=== PATIENT | female | born 1940 | race Caucasian/White ===

== ENCOUNTER 2018-01-08 11:23 | Observation (INO) | payer MEDICARE ==
[2018-01-08] MEDS ORDERED: NS 0.9% 1000 ML* 1,000 ML IV ONE (11:41)
[2018-01-08] MEDS ORDERED: Diltiazem IV* 5 MG/ML 5 ML VIAL (for loading dose/IV Push) (25 MG) IV SLOW PU ONE (11:42)
[2018-01-08 11:57] LABS: ABS Basophils 0 10^3/ul (0-0.2); ABS Eosinophils 0 10^3/ul (0-0.6); ABS Lymphocytes 1.4 10^3/ul (1.0-4.8); ABS Monocytes 0.9 10^3/ul (0-0.8); ABS Neutrophils 5.7 10^3/ul (1.5-7.7); ABS Nucleated RBC 0 10^3/ul; Eosinophil % 0.4 % (0-6); Hematocrit 51 % (35-47); Hemoglobin 17.2 g/dl (12.0-16.0); Lymphocyte % 17.7 % (25-47); Mean Corpuscular HGB Conc 34 g/dl (31-36); Mean Corpuscular Hemoglobin 32 pg (27-31); Mean Corpuscular Volume 94 fL (80-97); Mean Platelet Volume 8 um3 (7.4-10.4); Nucleated Red Blood Cells % 0.1; Platelet Count 250 10^3/ul (150-450); Red Blood Count 5.38 10^6/ul (4.0-5.4); Red Cell Distribution Width 15 % (10.5-15); White Blood Count 8.1 10^3/ul (3.5-10.8)
[2018-01-08 12:13] LABS: EGFR Non-African American 48.7 (>60)
[2018-01-08] MEDS ORDERED: Iodixanol* (CONTRAST) 320 MG/ML 100 ML SDV IV ONE (12:52)
--- NOTE | 2018-01-08 12:54 | RAD ---
INDICATION: Shortness of breath and chest pain COMPARISON: Chest x-ray October 01, 2007 TECHNIQUE: Single AP portable view of the chest was obtained. FINDINGS: Image quality is compromised due to the relative inferiority of a portable chest x-ray. There are surgical clips overlying the right axilla. The heart and mediastinum exhibit normal size and contour. There is mild coarse calcification overlying the arch of the aorta. Just above the right hilum there is a 1 cm density that appears to correspond to a confluence of vessels seen on the more detailed October 01, 2007 chest x-ray. There is slight elevation of the right hemidiaphragm. The lungs are otherwise clear. There is no evidence of a large pleural effusion. Visualized bones are normal for the patient's age. IMPRESSION: No radiographic evidence for acute cardiopulmonary abnormality on this portable chest x-ray.
--- NOTE | 2018-01-08 13:35 | RAD ---
HISTORY: Shortness of breath, new onset A. fib COMPARISONS: None TECHNIQUE: Multiple contiguous axial CT scans of the chest were obtained after the administration of nonionic intravenous contrast, timed to the pulmonary arterial phase of contrast enhancement.. Coronal and sagittal multiplanar reformations are also submitted for review. FINDINGS: NECK AND THYROID: The lower neck and thyroid are unremarkable. CHEST WALL: There is no lower cervical, axillary, or supraclavicular lymphadenopathy by size criteria. Surgical clips are noted in the right axilla. HEART AND PERICARDIUM: Coronary and valvular cardiac calcifications are noted. AORTA AND PULMONARY VASCULATURE: There is no pulmonary arterial filling defect to suggest pulmonary embolism. Evaluation of the aorta is limited secondary to technique. There is atherosclerosis of the thoracic aorta.. MEDIASTINUM: There is no mediastinal lymphadenopathy by size criteria. NABOR: There is no hilar lymphadenopathy by size criteria. AIRWAY AND ESOPHAGUS: The airway is unremarkable, without endobronchial filling defect. The esophagus is grossly normal. LUNG PARENCHYMA: There is minimal dependent atelectasis bilaterally. PLEURA: No pleural abnormalities are noted. UPPER ABDOMEN: The upper abdomen is unremarkable. BONES AND SOFT TISSUES: There are diffuse degenerative changes of the thoracic spine with sclerotic reactive endplate changes OTHER: None. IMPRESSION: 1. NO PULMONARY ARTERIAL FILLING DEFECT TO SUGGEST PULMONARY EMBOLISM. 2. ATHEROSCLEROSIS
[2018-01-08] MEDS ORDERED: Digoxin IV* 0.5 MG/2 ML AMP (0.25 MG/ML) IV SLOW PU ONE ×2 (14:39→16:42)
[2018-01-08] MEDS ORDERED: Ondansetron INJ* 2 MG/ML VIAL IV PRN (14:44)
[2018-01-08] MEDS ORDERED: Al Hydrox/Mg Hydrox/Simet LIQ* 30 ML UDC PO PRN (14:44)
[2018-01-08] MEDS ORDERED: Diltiazem IV VIAL* 125 MG in NS 0.9% 100 ML* 100 ML IV SCH ×2 (15:00→16:43)
[2018-01-08] MEDS ORDERED: Diltiazem DRIP* 100 MG/100 ML ADDV.BAG IVPB SCH (15:00)
[2018-01-08] MEDS ORDERED: Enoxaparin(*) 60 MG/0.6 ML SYR SUBCUT SCH (15:00)
--- NOTE | 2018-01-08 17:31 | ECHO ---
Patient: CIERA LLANOS [facility] Rec#: [id number] : 1940 Date: 01/08/2018 Age: 77y Height: 162.56 cm / 64.0 in Weight: 66.22 kg / 145.9 lbs Sex: F BSA: 1.71 Room#: [facility] Admit Date#: 01/08/2018 Type: Inpatient Referring: Marti Jimenez Reading: Zechariah Polk MD Loom Stop Checker: Carrie López RDCS CC: Brock Blackman MD Transthoracic Echocardiogram Indication: New atrial fibrillation BP: 164/114 HR: 115 Rhythm: A-Fib Findings Technical Comments: The study quality is good. Completed at 1720. Left Ventricle: The left ventricular chamber size is normal. Mild concentric left ventricular hypertrophy is observed. There is increased basal septal hypertrophy noted without evidence of an increased gradient across the left ventricular outflow tract. Global left ventricular wall motion and contractility are within normal limits. The left ventricle appears hyperdynamic. The estimated ejection fraction is 60-65%. The assessment of diastolic function is non-diagnostic. Left Atrium: The left atrium is severely dilated. Right Ventricle: The right ventricle wall thickness is mildly increased.7 mm. The right ventricular cavity size is normal. The right ventricular global systolic function is low normal. Right Atrium: The right atrial cavity size is severely dilated. Interatrial septum appears intact without evidence of shunting. The bubble study is negative. A patent foramen ovale is not demonstrated with color Doppler and agitated contrast. Aortic Valve: The aortic valve is trileaflet. The aortic valve leaflets are mildly thickened. Systolic excursion of the aortic valve cusps is reduced. There is no evidence of aortic regurgitation. There is no evidence of aortic stenosis. Mitral Valve: The mitral valve leaflets are mildly thickened. There is moderate mitral regurgitation. There is no evidence of mitral stenosis. Tricuspid Valve: The tricuspid valve leaflets are normal. There is mild to moderate tricuspid regurgitation. There is evidence of mild pulmonary hypertension. There is no tricuspid stenosis. Pulmonic Valve: The pulmonic valve appears normal. There is a trace pulmonic regurgitation. There is no pulmonic stenosis. Pericardium: There is no significant pericardial effusion. Aorta: There is no dilatation of the ascending aorta. There is no dilatation of the aortic arch. The aortic root is normal in size. Pulmonary Artery: The main pulmonary artery is not well visualized. Venous: The inferior vena cava appears normal in size. There is a greater than 50% respiratory change in the inferior vena cava dimension. Contrast: Normal saline was used as contrast for the bubble study. Images 82 and 83. Intravenous contrast was used to help determine presence of intracardiac shunting. Summary: There was not any prior study for comparison. Conclusions Mild concentric left ventricular hypertrophy is observed. There is increased basal septal hypertrophy noted without evidence of an increased gradient across the left ventricular outflow tract. The left ventricle appears hyperdynamic. The estimated ejection fraction is 60-65%. The left atrium is severely dilated. The right ventricle wall thickness is mildly increased. The right ventricular global systolic function is low normal. The right atrial cavity size is severely dilated. A patent foramen ovale is not demonstrated with color Doppler and agitated contrast. The aortic valve leaflets are mildly thickened. Systolic excursion of the aortic valve cusps is reduced. There is moderate mitral regurgitation. There is mild to moderate tricuspid regurgitation. There is evidence of mild pulmonary hypertension. Measurements Name Value Normal Range RVIDd (AP) 2D 3 cm (0.9 - 2.6) RVDdMajor (2D) 4.1 cm (2.2 - 4.4) RAd ISD 4CH 5.8 cm (3.4 - 4.9) RA (A4C)W 4.2 cm (2.9 - 4.6) IVSd (2D) 1.1 cm (0.6 - 1) LVPWd (2D) 1.1 cm (0.6 - 1) LVIDd (2D) 3.6 cm (3.6 - 5.4) LVIDs (2D) 3.1 cm - LV FS (2D) 15 % (25 - 45) EF Teichholz (2D) 33 % - Aortic Annulus 1.5 cm (1.4 - 2.6) Ao root diameter (2D) 3 cm (2.1 - 3.5) Ascending Ao 3 cm (2.1 - 3.4) Aortic arch 2.1 cm (1.8 - 3.4) LA dimension (AP) 2D 3.9 cm (2.3 - 3.8) LAd ISD 4CH 6.3 cm (2.9 - 5.3) LA ISD 4CH W 5.2 cm (2.5 - 4.5) Name Value Normal Range LA ESV SP 4CH (A/L) 72 ml - LA ESV SP 2CH (A/L) 94 ml - LA ESV BP (A/L) 86 ml - LA ESV BP (A/L) index 50 ml/m2 - LA ESV SP 4CH (MOD) 66 ml - LA ESV SP 2CH (MOD) 87 ml - Name Value Normal Range MV E-wave Vmax 1.05 m/sec - MV deceleration time 126.3 msec - MV E:A ratio 134.8 ratio - LV septal e' Vmax 0.1 m/sec - LV lateral e' Vmax 0.13 m/sec - LV E:e' septal ratio 8.08 ratio - LV E:e' lateral ratio 10.5 ratio - Name Value Normal Range AV Vmax 1.2 m/sec - AV VTI 19.2 cm - AV peak gradient 5.37 mmHg - AV mean gradient 3.28 mmHg - LVOT Vmax 0.85 m/sec - LVOT VTI 12.66 cm - LVOT peak gradient 2.9 mmHg - LVOT mean gradient 1.64 mmHg - DESMOND Vmax 0.45 m/sec - Name Value Normal Range MR Vmax 6.05 m/sec - MR VTI 135.3 cm - MR flow (PISA) 20.8 ml/sec - MR ERO 0.03 cm2 - MR PISA radius 0.5 cm - MR alias Vmax 29.6 cm/sec - Name Value Normal Range TR Vmax 3 m/sec - TR peak gradient 36 mmHg - RAP 3 mmHg - RVSP 39 mmHg - IVC diameter 2 cm - Name Value Normal Range PV Vmax 0.68 m/sec - PV peak gradient 1.9 mmHg -
[2018-01-08] MEDS: Atorvastatin* 40 MG TAB PO SCH (17:46)
--- NOTE | 2018-01-08 18:12 | RAD ---
HISTORY: bruit COMPARISONS: January 15, 2016 TECHNIQUE: Multiple transverse and longitudinal ultrasound images were obtained of the carotid and vertebral arteries bilaterally, using grayscale, color Doppler, and spectral Doppler imaging. FINDINGS: Measurement of carotid stenosis is based on flow velocity parameters that correlate the residual internal carotid artery diameter with [place] Symptomatic Carotid Endarterectomy Trial (NASCET)-based stenosis levels. RIGHT: Intima: There is diffuse intimal thickening with more focal atheroma formation at the bifurcation. Velocities: Right internal carotid artery maximum peak systolic velocity: 74 cm/s Right common carotid artery maximum peak systolic velocity: 133 cm/s Right internal carotid artery/common carotid artery ratio: 0.5 Waveforms: There is no spectral broadening. Right Vertebral: The right vertebral artery flow is antegrade. LEFT: Intima: There is diffuse intimal thickening with more focal atheroma formation at the bifurcation. Velocities: Left internal carotid artery maximum peak systolic velocity: 78 cm/s Left common carotid artery maximum peak systolic velocity: 120 cm/s Left internal carotid artery/common carotid artery ratio: 0.7 Waveforms: There is no spectral broadening. Left Vertebral: The left vertebral artery flow is antegrade. OTHER FINDINGS: None. IMPRESSION: NO HEMODYNAMICALLY SIGNIFICANT STENOSIS OF THE RIGHT INTERNAL CAROTID ARTERY BY FLOW VELOCITY MEASUREMENTS. THIS CORRESPONDS TO A LUMINAL DIAMETER OF LESS THAN 50% STENOSIS BY NASCET CRITERIA. NO HEMODYNAMICALLY SIGNIFICANT STENOSIS OF THE LEFT INTERNAL CAROTID ARTERY BY FLOW VELOCITY MEASUREMENTS. THIS CORRESPONDS TO A LUMINAL DIAMETER OF LESS THAN 50% STENOSIS BY NASCET CRITERIA. CPT II Codes: 3100F
--- NOTE | 2018-01-08 20:27 | HP ---
AMENDED REPORT NOW INCLUDES COSIGNER DESIGNATION - ESIGNED BEFORE ADJUSTMENT CC: Dr. Brock Blackman * HISTORY AND PHYSICAL: DATE OF ADMISSION: 01/08/18 PROVIDER: Marti Jimenez NP ATTENDING PHYSICIAN WHILE IN THE HOSPITAL: Dr. Rafaela Carrizales * (dictated by Marti Jimenez NP) CHIEF COMPLAINT: 1. Shortness of breath. 2. Chest pain. HISTORY OF PRESENT ILLNESS: Ms. Cleaning is a 77-year-old female that was seen at her primary care office today and was found to be in atrial fibrillation. So, she was sent to the emergency room for further workup. Ms. Cleaning carries a history of hypertension, high cholesterol, right-sided breast cancer in 1996, and right subclavian stenosis. Ms. Cleaning states that up until yesterday, she was in her normal state of health. She denied any recent exposure to sick contacts. She states that yesterday, she woke in the morning and she had an ache in her chest. She states that the ache was in the sternal area. She states that the ache radiated up to her shoulders and in to her mouth. She says that during the day yesterday, she did lie back down for a while, but the ache did not subside. So, she thought that maybe she was having a heart attack. So, she took an aspirin 325 mg with no relief of the symptoms and approximately 4 hours later, she took another aspirin 325 mg, again with no relief. Later that day, she took Tylenol 650 mg and states that later that evening, the chest ache had subsided. Ms. Cleaning reports that over the past month , she has had a cough and some shortness of breath when climbing stairs. She reports that she is able to do all other activities such as vacuuming and grocery shopping without any shortness of breath. She reports it is only with climbing stairs. She denies any fatigue or dizziness. She denies any palpitations. She denies back pain. She denies any increased shortness of breath. PAST MEDICAL HISTORY: 1. Hypertension. 2. High cholesterol. 3. Right breast cancer in 1996, which she completed treatment. 4. Right subclavian stenosis. PAST SURGICAL HISTORY: 1. Bilateral hip replacements. 2. precancerous cells removed from her cervix. 3. Tonsillectomy. MEDICATIONS: Home medications: 1. Multivitamin. 2. Aspirin 81 mg p.o. daily. 3. Lisinopril 10 mg p.o. daily. 4. Calcium with vitamin D3 1 tab p.o. daily. 5. Simvastatin 40 mg p.o. daily. 6. Stewart-3 one cap p.o. daily. ALLERGIES TO MEDICATIONS: No known allergies. FAMILY HISTORY: Father is still living at the age of 102. She reports paternal grandmother with a history of CHF and maternal grandmother with a history of an SC after surgery, paternal grandmother with diabetes, Aunt with cancer. SOCIAL HISTORY: The patient is a previous smoker. She quit 17 years ago. States that she smoked between 3 quarters and a pack a day. She does report daily alcohol use, which she has 1 cocktail at night. Drug use, no drug use. She is retired. She lives with her . Her surrogate decision maker is her , Alberto Cleaning. His phone number is [phone]. REVIEW OF SYSTEMS: There was no documented fever. There has been no significant weight change. There was no double vision. She denies any ear discharge. Denies any rhinorrhea. She denies sore throat. She does report that she had a chest ache yesterday, but denies any chest pain today. She denies any shortness of breath or nocturnal dyspnea. She does report shortness of breath only with climbing stairs. She denies any abdominal pain. Denies nausea or vomiting. Denies diarrhea. Denies any dysuria or urinary frequency. Denies any hematuria. Denies palpitations. No pruritus or skin ulcerations. A review of 14 systems was completed and all others are negative. PHYSICAL EXAMINATION GENERAL: At this time, Ms. Cleaning is a 77-year-old female. She appears well and healthy, lying on the stretcher. She does not appear to be in any acute distress. VITAL SIGNS: Blood pressure 150/96, heart rate is 133 and irregular, respirations are 16, O2 saturation was 93% on room air, temp was 96.8. HEENT: Head is atraumatic, normocephalic. Eyes: EOMs are intact. Sclerae anicteric, not pale. Oral mucosa appears to be moist. No oropharyngeal erythema. NECK: Supple. LUNGS: Clear to auscultation. No wheezes, rales, or rhonchi. CARDIAC: S1, S2. Irregular rate and rhythm. There are no murmurs, rubs, or gallops. She is tachycardic. ABDOMEN: Soft, flat, and nontender. Bowel sounds are positive x4. EXTREMITIES: Pulses are +2 throughout. She is moving all extremities with 5/5 strength. Pedal pulses are +2 bilaterally. NEUROLOGIC: She is awake, she is alert, and oriented x3. Speech is clear. There are no focal deficits noted. SKIN: Intact. DIAGNOSTIC STUDIES/LAB DATA: WBCs are 8.1, hemoglobin was 17.2, hematocrit was 51, platelet count was 250. Sodium was 136, potassium 4.3, chloride 101, carbon dioxide was 27, anion gap is 8, BUN was 17, creatinine 1.09, glucose was 101, calcium was 10.0, magnesium 2.3. ASTs were 30, ALTs were 39. TSH was 1.72 , T4 was 5.13, free T4 is pending at this time. BNP was 321. Troponin was 0.01. EKG: EKG shows AFib at a rate of 120. Her previous EKG from her doctor's office from today showed AFib. Prior to that, she was in sinus rhythm from an old EKG at her physician's office. Chest x-ray showed no acute disease. She had a CTA of the chest: 1. No pulmonary atrial filling defect, no pulmonary embolism is seen. 2. Atherosclerosis. ASSESSMENT AND PLAN: Ms. Cleaning is a 77-year-old female that presented to the emergency room today after being seen in her primary care office and found to be in atrial fibrillation. We were asked to evaluate her because of the new- onset atrial fibrillation. She will be admitted under observation status to the telemetry unit for: 1. New-onset atrial fibrillation. She will be placed on a Cardizem drip at 5 mg per hour. She will receive a dose of IV digoxin 0.5 mg IV. I have consulted Cardiology and Dr. Polk will see her. I also ordered a transthoracic echocardiogram to be completed. I will place her on Lovenox 60 mg q.12 hours. Her CHADS2 score is a 2, which puts her at an intermediate risk of thromboembolic event at 4%. Her [id number] score is 5 for atrial fibrillation, stroke risk is 7.2%, and 10% risk of stroke/transient ischemic attack or systemic embolism, she scores a [id number] risk and anticoagulation consideration should be evaluated. Her ATRIA Bleeding Risk Score is 3, which puts her at a low risk, 0.76 annually of having a hemorrhage if placed on anticoagulation. We will continue serial troponins on her x2. Cardiology consult will be appreciated. 2. Abnormal T4. T4 level was 5.3. A free T4 level is pending. 3. Hypertension. At this time, we will hold her lisinopril as she is on Cardizem at this time. 4. High cholesterol. The patient is on simvastatin 40 mg p.o. daily at home. 5. FEN. We will place her on a heart-healthy diet, decaf okay. 6. Code status. She is a full code. 7. DVT prophylaxis. She is on Lovenox 60 mg b[address]i.d. I will also place SCDs on her. 8. Disposition. She will be admitted to medical telemetry floor. TIME SPENT: Time spent on this admission was approximately 60 minutes, greater than half the time was spent [id number] with the patient obtaining the history and physical, the other half of the time was spent going over the plan of care with the patient and implementing the plan of care. I have discussed this plan with my attending physician, Dr. Rafaela Carrizales, and she is in agreement. MARTI JIMENEZ, [place] [id number]/[facility] #: [id number] RENÉE
[2018-01-08 22:33] LABS: Urine Appearance Clear; Urine Blood Negative (Negative); Urine Color Yellow; Urine Ketones Trace (Negative); Urine Protein Negative (Negative); Urine Specific Gravity 1.019 (1.010-1.030); Urine Urobilinogen Negative (Negative)
--- NOTE | 2018-01-09 01:09 | CONS ---
CC: Dr. Blackman * CARDIOLOGY CONSULTATION: DATE OF CONSULT: 01/08/18 CONSULTING PROVIDER: Marti Jimenez NP REASON FOR CONSULT: AFib. HISTORY OF PRESENT ILLNESS: This is a very pleasant 77-year-old woman who said that she was in her usual sate of health until about 2 months ago when she noted nonproductive cough and some shortness of breath going up and down the flight of stairs. She said she is not normally very active, but was able to do her shopping and walk short distances. She also goes once a week to the pool and does some stretching, but not swimming. She said that yesterday morning she awoke feeling achiness in her left chest, she thought in her sternum, she thought it was in her breast bone, was not tender. She said it was worse with deep inspiration. Because of those, she did not have any associated nausea, vomiting, gas or diaphoresis. She did not change her position, just rested all day. She said she took 2 aspirin over the course of the day and by the end of the day improved and she was able to go to sleep. This morning she felt well, but because of the episode yesterday she decided to go to see her primary care doctor, Dr. Blackman. Dr. Blackman did an EKG and diagnosed with AFib and sent her to the emergency room. Her initial EKG showed what looked like AFib and possibly A -flutter with a rapid ventricular response in the 120s. She also had an elevated D-dimer at 382 and she had a negative CT angio for pulmonary embolism; however, was positive for coronary calcifications. She denies bleeding problems , strokes or mini strokes. No rheumatic fever, murmurs. No coronary disease. She does state she has a chronically occluded right subclavian artery with differential blood pressure in the upper extremities. PAST MEDICAL HISTORY: Includes; 1. Hypertension. 2. Hyperlipidemia. 3. Right subclavian artery stenosis. 4. Tobacco use of about 1 or less packs per day for 40 years, discontinued 17 years ago. 5. She had a longstanding exposure of secondhand smoke from her . 6. She has a history of breast cancer. PAST SURGICAL HISTORY: Includes; 1. Lumpectomy on the right breast and RT. 2. She had bilateral hip replacements. 3. She had some cervical precancerous lesions removed. MEDICATIONS: Home medications include; 1. Multivitamins. 2. 81 mg of aspirin. 3. Lisinopril 10 mg a day. 4. Calcium carbonate. 5. Vitamin D3. 6. Simvastatin 40 mg a day. 7. [place]-3, 1 cap a day. As an inpatient, she is on 1. Acetaminophen. 2. Maalox. 3. Atorvastatin 40 mg a day. 4. Diltiazem IV 5 mg an hour, increasing to 10 mg an hour currently. 5. Enoxaparin 60 mg subcu q.12. 6. Multivitamin 1 tablet a day. 7. Ondansetron 4 mg IV p.r.n. SOCIAL HISTORY: She is and has 4 step children. She is a retired psychiatric nursing assistant. She drinks 2 to 3 cups of caffeine a day and she drinks 1 to 2 drinks of alcohol a day. She denies any recent over indulgence, but occasionally drinks more when she is with friends. She goes up and down 1 flight of stairs without stopping, but is more short of breath over the last 2 months. REVIEW OF SYSTEMS: Times 10 was negative except as above. PHYSICAL EXAM: She is a well-developed, well-nourished female, in no apparent distress. Blood pressure 150/95 with a heart rate of 130, O2 saturation is 98% . No significant JVD. Carotids are 2+ with bruits bilaterally or transmitted murmurs. Extraocular muscles intact. Sclerae anicteric. Cardiac: S1, S2 with a 2/6 holosystolic murmur at the apex. Chest was clear with decreased breath sounds, prolonged expiratory phase. No CVAT. Abdomen: Bowel sounds present. No hepatosplenomegaly. Femoral pulses intact. Distal pulses intact. No edema. Motor strength 5/5 bilaterally. Deep tendon reflexes 2/4. Alert and oriented x3. DIAGNOSTIC STUDIES/LAB DATA: An EKG revealed atrial fibrillation with a rapid ventricular response and nonspecific diffuse ST depressions. Electrolytes revealed potassium 4.3, BUN 17, creatinine 1.09, mag of 2.3. BNP elevated at 321. TSH normal. Thyroxine mildly decreased at 5.13. CBC with an elevated hemoglobin 7.2, hematocrit of 51 and platelet count of 250,000. Chest x-ray: Mild coarse calcifications overlying the arch of the aorta. CT angio from today revealed no PE, but there was atherosclerosis with calcifications of the valves and the coronary arteries and there was atherosclerosis of the thoracic aorta. IMPRESSION: Mrs. Cleaning has a new presentation of atrial fibrillation of unknown duration. She is not aware of her symptoms, but she does suggest in this case she had a nonproductive cough and dyspnea on exertion for 2 months. This may be related to atrial fibrillation or to coronary artery disease given her history of vascular disease and coronary calcifications. For the time being, I have recommended the following: I recommended anticoagulation as you are doing. I suggested rate control with IV diltiazem, IV beta blockers and digoxin as tolerated. I have recommended continued lipid lowering, switching her from simvastatin to Lipitor given the potential need for diltiazem and its interactions. I would suggest carotid Dopplers. If she fails to convert overnight, would consider a BERNIE-guided cardioversion. Would consider an evaluation for pulmonary disease given her history of tobacco use and polycythemia with continuous blood pressure control. I asked her to reduce her caffeine and alcohol. I did explain potential for coronary artery disease given her vascular disease and coronary calcifications. At some point, I would recommend a stress test. Further recommendation will depend on her clinical course. I did recommend long-term anticoagulation given her CHADS-VASC2 score of 4 and her lack of ability to appreciate her atrial fibrillation. [id number]/[facility] #: [id number] RENÉE
[2018-01-09] MEDS: Acetaminophen TAB* 325 MG PO PRN ×2 (01:28→22:14)
[2018-01-09] MEDS ORDERED: Diltiazem IV VIAL* 125 MG in NS 0.9% 100 ML* 100 ML IV SCH (04:30)
[2018-01-09] MEDS ORDERED: Enoxaparin(*) 60 MG/0.6 ML SYR SUBCUT SCH (06:00)
[2018-01-09 06:55] LABS: ABS Basophils 0 10^3/ul (0-0.2); ABS Eosinophils 0.1 10^3/ul (0-0.6); ABS Lymphocytes 1.4 10^3/ul (1.0-4.8); ABS Monocytes 0.6 10^3/ul (0-0.8); ABS Neutrophils 3.2 10^3/ul (1.5-7.7); ABS Nucleated RBC 0 10^3/ul; Eosinophil % 1.3 % (0-6); Hematocrit 44 % (35-47); Hemoglobin 14.8 g/dl (12.0-16.0); Lymphocyte % 26.3 % (25-47); Mean Corpuscular HGB Conc 34 g/dl (31-36); Mean Corpuscular Hemoglobin 32 pg (27-31); Mean Corpuscular Volume 94 fL (80-97); Mean Platelet Volume 8 um3 (7.4-10.4); Nucleated Red Blood Cells % 0.1; Platelet Count 223 10^3/ul (150-450); Red Blood Count 4.66 10^6/ul (4.0-5.4); Red Cell Distribution Width 15 % (10.5-15); White Blood Count 5.3 10^3/ul (3.5-10.8)
[2018-01-09] MEDS: Multivitamins/Minerals TAB PO SCH (07:50)
[2018-01-09] MEDS ORDERED: fentaNYL* 50 MCG/ML 2 ML VIAL (100 MCG VIAL) ONE (10:09)
[2018-01-09] MEDS ORDERED: Flumazenil* 0.1 MG/ML 5 ML MDV ONE (10:09)
[2018-01-09] MEDS ORDERED: Midazolam* 1 MG/ML 10 ML VIAL (10 MG) ONE (10:09)
[2018-01-09] MEDS ORDERED: Lidocaine 2% VISCOUS* 15 ML UDC ONE (10:09)
[2018-01-09] MEDS ORDERED: Naloxone* 0.4 MG/ML 1 ML VIAL ONE (10:09)
[2018-01-09] MEDS: Diltiazem CD CAP* 120 MG PO SCH (14:14)
[2018-01-09] MEDS: Atorvastatin* 40 MG TAB PO SCH (16:06)
[2018-01-09] MEDS ORDERED: Digoxin TAB* 0.125 MG PO SCH (17:00)
[2018-01-09] MEDS: Rivaroxaban TAB(*) 15 MG PO SCH (21:19)
--- NOTE | 2018-01-09 21:28 | PN ---
Subjective Date of Service: 01/09/18 Interval History: Patient down for attempted cardioversion and PACU for most of day. Drowsy when examined after return to floor. Denies palpitations, SOB, CP, N/V, Diarrhea, abdominal pain, F/C. Discussed the decision to proceed with rate control at this time and to anticoagulate with DOAC to which patient agreed. Family History: Unchanged from Admission Social History: Unchanged from Admission Past Medical History: Unchanged from Admission Objective Active Medications: Acetaminophen (Tylenol Tab*) 650 mg PO Q4H PRN PRN Reason: FEVER/PAIN Last Admin: 01/09/18 01:28 Dose: 650 mg Al Hydrox/Mg Hydrox/Simethicone (Maalox Plus*) 30 ml PO Q6H PRN PRN Reason: INDIGESTION Atorvastatin Calcium (Lipitor*) 40 mg PO 1700 [facility] Last Admin: 01/09/18 16:06 Dose: 40 mg Digoxin (Lanoxin Tab*) 0.125 mg PO 1700 [facility] Last Admin: 01/09/18 16:06 Dose: 0.125 mg Diltiazem HCl (Cardizem Cd Cap*) 120 mg PO DAILY [facility] Last Admin: 01/09/18 14:14 Dose: 120 mg Multivitamins/Minerals (Theragran/Minerals Tab*) 1 tab PO DAILY [facility] Last Admin: 01/09/18 07:50 Dose: Not Given Ondansetron HCl (Zofran Inj*) 4 mg IV Q4H PRN PRN Reason: NAUSEA/VOMITING Rivaroxaban (Xarelto(*)) 15 mg PO BID [facility] Last Admin: 01/09/18 21:19 Dose: 15 mg Vital Signs - 8 hr 01/09/18 01/09/18 01/09/18 13:51 14:48 15:50 Temperature 98.0 F 97.6 F Pulse Rate 70 107 Respiratory 16 16 Rate Blood Pressure 106/68 118/70 119/59 (mmHg) O2 Sat by Pulse 92 97 Oximetry 01/09/18 16:06 Temperature Pulse Rate 105 Respiratory Rate Blood Pressure (mmHg) O2 Sat by Pulse Oximetry Oxygen Devices in Use Now: Nasal Cannula - 2L Appearance: Patient is a 77yo female who appears stated age and is sitting in the bed in [facility]. Eyes: No Scleral Icterus, PERRLA Ears/Nose/Mouth/Throat: NL Teeth, Lips, Gums, Clear Oropharnyx, Mucous Membranes Moist Neck: NL Appearance and Movements; NL JVP, Trachea Midline, No Thyroid Enlargement, Masses Respiratory: Symmetrical Chest Expansion and Respiratory Effort, Clear to Auscultation Cardiovascular: NL Sounds; No Murmurs; No JVD, No Edema, - - Irregularly irregular rhythm, Rate 60-80. Abdominal: NL Sounds; No Tenderness; No Distention, No Hepatosplenomegaly Lymphatic: No Cervical Adenopathy Extremities: No Edema, No Clubbing, Cyanosis Skin: No Rash or Ulcers, No Nodules or Sclerosis Neurological: Alert and Oriented x 3, NL Sensation, NL Muscle Strength and Tone , - - Slight persistent lateral nystagmus with lateral gaze. Result Diagrams: 01/09/18 05:52 01/09/18 05:52 Assess/Plan/Problems-Billing Assessment: Patient is a 77yo female with a PMH significant for HTN, HLD, Subclavian stenosis and history of tobacco abuse who presents in atrial fibrillation with RVR who was unable to be cardioverted and is not rate controlled and anticoagulated. - Patient Problems (1) Atrial fibrillation Current Visit: Yes Status: Acute Code(s): I48.91 - UNSPECIFIED ATRIAL FIBRILLATION SNOMED Code(s): 08494339 Comment: Appreciate Cardiology input. Afib with RVR. Rate controlled with cardizem drip and IV digoxin. Changed to PO cardizem and digoxin after unsucessful cardioversion. Anticoagulated with xarelto on starting dose of 15mg BID for 21 days. Pulmonary disease likely contributing. (2) Coronary artery disease Current Visit: Yes Status: Acute Code(s): I25.10 - ATHSCL HEART DISEASE OF [facility] CORONARY ARTERY W/O ANG PCTRS SNOMED Code(s): 55252877 Comment: Coronary calcifications noted on CTA. Recommend outpatient stress test. Echo shows preserved ejection fraction. (3) COPD (chronic obstructive pulmonary disease) Current Visit: Yes Status: Acute Code(s): J44.9 - CHRONIC OBSTRUCTIVE PULMONARY DISEASE, UNSPECIFIED SNOMED Code(s): 00104667 Comment: Likely COPD due to smoke exposure, Mild pulmonary hypertension on echo, polycythemia. Recommend pulmonary referral outpatient for PFTs. (4) CONCEPCION (obstructive sleep apnea) Current Visit: Yes Status: Acute Code(s): G47.33 - OBSTRUCTIVE SLEEP APNEA ( ADULT) (PEDIATRIC) SNOMED Code(s): 87190556 Comment: Reports snoring. Denies daytime sleepiness. Wide neck. Significant hypoxia on overnight pulse oximetry. Would recommend overnight oxygen and pulmonology evauation for formal sleep study. (5) HTN (hypertension) Current Visit: Yes Status: Acute Code(s): I10 - ESSENTIAL (PRIMARY) HYPERTENSION SNOMED Code(s): 21930005 Comment: Normotensive. Hold lisinopril. Tolerating dilitazem 120mg CD. (6) HLD (hyperlipidemia) Current Visit: Yes Status: Acute Code(s): E78.5 - HYPERLIPIDEMIA, UNSPECIFIED SNOMED Code(s): 91106208 Comment: Switch to Atorvastatin at discharge. Significant vascular pathology on CTA of chest and with subclavian stenosis. (7) DVT prophylaxis Current Visit: Yes Status: Acute Code(s): WUY1739 - SNOMED Code(s): 297120206 Comment: Mariam (8) Full code status Current Visit: Yes Status: Acute Code(s): Z78.9 - OTHER SPECIFIED HEALTH STATUS SNOMED Code(s): 359571197 Status and Disposition: Patient is admitted inpatient.
--- NOTE | 2018-01-10 03:14 | CARD ---
CARDIOLOGY PROCEDURE NOTE: DATE OF PROCEDURE: 01/09/18 HISTORY: This is a 77-year-old woman with a history of hypertension found to be in AFib. Her rates were controlled overnight, but she failed to convert to sinus rhythm. DETAILS OF PROCEDURE: Informed consent was obtained. She was premedicated with 10 mg of Versed and 75 mcg of fentanyl. Despite sedation, we were unable to pass the probe. She had to have paradoxical agitation with sedation medications rather than conscious sedation. Given her history of hypoxemia overnight and COPD, I was reluctant to pursue more aggressive sedation. The procedure was aborted without having passed the probe. PLAN: Will be as follows: 1. She will be continued on anticoagulation and rate control. 2. We will consider repeat attempt at BERNIE-guided cardioversion as an outpatient with anesthesia or perhaps wait a month on anticoagulation. [id number]/[facility] #: [id number] Over 1 hour was spent with the patient, monitoring, and discussing with patient and her over the course of the day. RENÉE
[2018-01-10] MEDS: Acetaminophen TAB* 325 MG PO PRN (06:17)
[2018-01-10 06:29] LABS: ABS Basophils 0 10^3/ul (0-0.2); ABS Eosinophils 0.1 10^3/ul (0-0.6); ABS Lymphocytes 1.5 10^3/ul (1.0-4.8); ABS Monocytes 0.6 10^3/ul (0-0.8); ABS Neutrophils 3.3 10^3/ul (1.5-7.7); ABS Nucleated RBC 0 10^3/ul; Eosinophil % 2.5 % (0-6); Hematocrit 45 % (35-47); Hemoglobin 15.1 g/dl (12.0-16.0); Lymphocyte % 27.1 % (25-47); Mean Corpuscular HGB Conc 34 g/dl (31-36); Mean Corpuscular Hemoglobin 32 pg (27-31); Mean Corpuscular Volume 94 fL (80-97); Mean Platelet Volume 7 um3 (7.4-10.4); Nucleated Red Blood Cells % 0.1; Platelet Count 236 10^3/ul (150-450); Red Blood Count 4.76 10^6/ul (4.0-5.4); Red Cell Distribution Width 15 % (10.5-15); White Blood Count 5.6 10^3/ul (3.5-10.8)
[2018-01-10 06:45] LABS: EGFR Non-African American 58.5 (>60)
--- NOTE | 2018-01-10 08:35 | ED ---
Mingo Kang Thomas, scribed for Sal Barajas MD on 01/08/18 at 1204 . HPI Chest Pain - HPI Summary HPI Summary: The patient is a 77 year old female referred from her primary care physician complaining of chest pain that began yesterday. The pain is aggravated by deep breaths and is alleviated by nothing. The patient additionally complains of shortness of breath. The patient denies palpitations. The patient had an EKG performed on 01/09/16 that was normal sinus rhythm. She is not on any blood thinners. - History of Current Complaint Chief Complaint: EDShortnessOfBreath Time Seen by Provider: 01/08/18 11:35 Hx Obtained From: Patient Onset/Duration: Started Days Ago - 1, Still Present Timing: Constant Current Severity: Moderate Pain Intensity: 0 Pain Scale Used: 0-10 Numeric Chest Pain Radiates: No Aggravating Factor(s): Deep Breaths Alleviating Factor(s): Nothing Associated Signs and Symptoms: Positive: Shortness of Breath. Negative: Fever, Palpitations - Allergy/Home Medications Allergies/Adverse Reactions: Allergies Allergy/AdvReac Type Severity Reaction Status Date / Time No Known Allergies Allergy Verified 08/18/14 12:55 Home Medications: Home Medications Aspirin EC Low Dose* [Ecotrin EC Low Dose 81 MG*] 81 mg PO DAILY 01/08/18 [ History Confirmed 01/08/18] Lisinopril TAB* [Prinivil TAB*] 10 mg PO DAILY 01/08/18 [History Confirmed 01/08] Multivitamins/Minerals TAB* [Theragran/minerals TAB*] 1 tab PO DAILY 01/08/18 [ History Confirmed 01/08/18] Antelope-3/Dha/Epa/Fish Oil [Fish Oil Triple Strength 1360 mg] 1 cap PO DAILY 01/08 [History Confirmed 01/08/18] Simvastatin TAB(NF) [Zocor(NF)] 40 mg PO DAILY 01/08/18 [History Confirmed 01/08] PMH/Surg Hx/FS Hx/Imm Hx Cardiovascular History: Reports: Hx Hypertension - ON MEDICATION FOR, Other Cardiovascular Problems/Disorders - SUB CLAVICAL ARTERIAL STENOSIS Denies: Hx Coronary Artery Disease Musculoskeletal History: Reports: Hx Arthritis - OSTEO Sensory History: Reports: Hx Contacts or Glasses - READING Denies: Hx Hearing Aid Opthamlomology History: Reports: Hx Contacts or Glasses - READING - Surgical History Surgery Procedure, Year, and Place: REMOVAL OF PRECANCEROUR CERVICAL CELLS- [place]. LUMPECTOMY-1996. LEFT HIP REPLACEMENT-2009. RIGHT HIP REPLACEMENT- 2010. 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 Negative: Palpitations Positive: Shortness Of Breath All Other Systems Reviewed And Are Negative: Yes Physical Exam - Summary Physical Exam Summary: VITAL SIGNS: Reviewed. GENERAL: Patient is a well-developed and nourished female who is lying comfortable in the stretcher. Patient is not in any acute respiratory distress. However, she is mildly dyspnic. HEAD AND FACE: No signs of trauma. ~No ecchymosis, hematomas or skull depressions. No sinus tenderness. EYES: PERRLA, EOMI x 2, No injected conjunctiva, no nystagmus. EARS: Hearing grossly intact. Ear canals and tympanic membranes are within normal limits. MOUTH: Oropharynx within normal limits. NECK: Supple, trachea is midline, no adenopathy, no JVD, no carotid bruit, no c- spine tenderness, neck with full ROM. CHEST: Symmetric, no tenderness at palpation LUNGS: Clear to auscultation bilaterally. No wheezing or crackles. She is mildly dyspnic. CVS: Irregularly irregular rhythm., S1 and S2 present, no murmurs or gallops appreciated. ABDOMEN: Soft, non-tender. No signs of distention. No rebound no guarding, and no masses palpated. Bowel sounds are normal. EXTREMITIES: FROM in all major joints, no edema, no cyanosis or clubbing. NEURO: Alert and oriented x 3. No acute neurological deficits. Speech is normal and follows commands. SKIN: Dry and warm Triage Information Reviewed: Yes Vital Signs On Initial Exam: Initial Vitals Temp Pulse Resp BP Pulse Ox 96.8 F 137 17 144/107 96 01/08/18 11:35 01/08/18 11:35 01/08/18 11:35 01/08/18 11:35 01/08/18 11:35 Vital Signs Reviewed: Yes Diagnostics - Vital Signs Vital Signs Temp Pulse Resp BP Pulse Ox 01/08/18 11:55 146 17 107/66 98 01/08/18 11:47 128 19 150/101 97 01/08/18 11:37 120 15 97 01/08/18 11:35 96.8 F 137 17 144/107 96 - Laboratory Lab Results: Lab Results 01/08/18 Range/Units 11:45 WBC 8.1 (3.5-10.8) 10^3/ul RBC 5.38 (4.0-5.4) 10^6/ul Hgb 17.2 H (12.0-16.0) g/dl Hct 51 H (35-47) % MCV 94 (80-97) fL MCH 32 H (27-31) pg MCHC 34 (31-36) g/dl RDW 15 (10.5-15) % Plt Count 250 (150-450) 10^3/ul MPV 8 (7.4-10.4) um3 Neut % (Auto) 70.3 (38-83) % Lymph % (Auto) 17.7 L (25-47) % Harney % (Auto) 11.0 H (1-9) % Eos % (Auto) 0.4 (0-6) % Baso % (Auto) 0.6 (0-2) % Absolute Neuts (auto) 5.7 (1.5-7.7) 10^3/ul Absolute Lymphs (auto) 1.4 (1.0-4.8) 10^3/ul Absolute Monos (auto) 0.9 H (0-0.8) 10^3/ul Absolute Eos (auto) 0 (0-0.6) 10^3/ul Absolute Basos (auto) 0 (0-0.2) 10^3/ul Absolute Nucleated RBC 0 10^3/ul Nucleated RBC % 0.1 Result Diagrams: 01/08/18 11:45 01/08/18 11:45 Lab Statement: Any lab studies that have been ordered have been reviewed, and results considered in the medical decision making process. - Radiology CXR Xray Interpretation: No Acute Changes - No radiographic evidence for acute cardiopulmonary abnormality on this portable chest x-ray. Dr. Barajas has reviewed this report. Radiology Interpretation Completed By: Radiologist - CT CTA Chest/Thorax CT Interpretation: No Acute Changes - 1. NO PULMONARY ARTERIAL FILLING DEFECT TO SUGGEST PULMONARY EMBOLISM. 2. ATHER[address]. Dr. Barajas has reviewed this report. CT Interpretation Completed By: Radiologist - EKG 11:33 Cardiac Rate: Tachycardia EKG Rhythm: Atrial Fibrillation - at 120 BPM EKG Interpretation: No ST elevations Chest Pain Course/Dx - Course Assessment/Plan: The patient is a 77 year old female referred from her primary care physician complaining of chest pain that began yesterday. Test results are without significant abnormality except a d-dimer of 382 and BNP of 321. CXR shows No radiographic evidence for acute cardiopulmonary abnormality on this portable chest x-ray. CTA Chest/Thorax shows 1. NO PULMONARY ARTERIAL FILLING DEFECT TO SUGGEST PULMONARY EMBOLISM. In the ED course, the patient was given IV fluids and placed on the monitor. The monitor shows A-Fib, which seems to be new for the patient. The patient was given a Cardizem bolus and the heart rate decreased. However, the heart rate started to creep up, and therefore the patient was placed on a Cardizem drip. At this point, I discussed the findings and test results with Dr. Carrizales, who accepts the patient for admission. The patient is hemodynamically stable and alert and oriented x3. - Diagnoses Provider Diagnoses: New-onset A-fib with RVR - Provider Notifications Discussed Care Of Patient With: Rafaela Carrizales Time Discussed With Above Provider: 13:13 Instructed by Provider To: Admit As Inpatient - Critical Care Time Critical Care Time: 75-104 min Discharge - Discharge Plan Condition: Fair Disposition: ADMITTED TO [facility] The documentation as recorded by the Mingo nance Thomas accurately reflects the service I personally performed and the decisions made by Karl mathesw Walter, MD.
[2018-01-10] MEDS: Rivaroxaban TAB(*) 15 MG PO SCH (10:01)
[2018-01-10] MEDS: Diltiazem CD CAP* 120 MG PO SCH (10:01)
[2018-01-10] MEDS: Multivitamins/Minerals TAB PO SCH (10:01)
[2018-01-10] MEDS ORDERED: Metoprolol Succinate XL TAB* 25 MG PO SCH (12:00)
[2018-01-10 12:36] VITALS: BP 158/78
[2018-01-11] MEDS ORDERED: Rivaroxaban TAB(*) 15 MG PO SCH (17:00)
== END 2018-01-10 16:00 | disposition home or self-care (01) ==
LOC: ED 11:23 → MEDTELE 14:44
PROVIDERS: ADMIT Internal Medicine; ATTEND Internal Medicine
DX: I48.91 Unspecified atrial fibrillation (principal); I25.10 Atherosclerotic heart disease of native coronary artery without angina pectoris; J44.9 Chronic obstructive pulmonary disease, unspecified; G47.33 Obstructive sleep apnea (adult) (pediatric); I10 Essential (primary) hypertension; E78.5 Hyperlipidemia, unspecified; R06.02 Shortness of breath; Z87.891 Personal history of nicotine dependence; R07.9 Chest pain, unspecified; Z86.79 Personal history of other diseases of the circulatory system
CPT/HCPCS: 36415; 71045; 71275; 80048; 80053; 80061; 80162; 81003; 82550; 82553; 83735; 83880; 84436; 84439; 84443; 84484; 85025; 85379; 85652; 86140; 93005; 93306; 93880; 94762; 96374; 96375; 99283; A9270-GY; G0378; G8978-GP-CH; G8979-GP-CH; G8980-GP-CH; J1160; J1650; J2250; J2310; J3010; Q9967

== ENCOUNTER 2019-05-03 09:15 | Observation (INO) | payer MEDICARE, BC ==
[2019-05-03] MEDS ORDERED: ceFAZolin* 2 GM* ONE DOSE (Duplex) IVPB (10:00)
[2019-05-03] MEDS ORDERED: ceFAZolin VIAL 1 GM in NS *SYRINGE * * 10 ML ONE (10:00)
[2019-05-03] MEDS ORDERED: Diazepam TAB(*) 5 MG ONE (10:06)
[2019-05-03] MEDS ORDERED: fentaNYL* 50 MCG/ML 2 ML VIAL (100 MCG VIAL) ONE (10:30)
[2019-05-03] MEDS ORDERED: Midazolam* 1 MG/ML 5 ML VIAL (5 MG) ONE (10:31)
[2019-05-03] MEDS ORDERED: Lidocaine 1% INJ* 10 MG/ML 30 ML SDV ONE (10:31)
[2019-05-03] MEDS ORDERED: Acetaminophen TAB* 325 MG PO PRN (11:22)
[2019-05-03] MEDS ORDERED: Acetaminophen TAB* 325 MG ONE (12:01)
[2019-05-03] MEDS: ceFAZolin 1 GM in Dextrose (*) 1 GM/50 ML BAG IVPB SCH (18:21)
[2019-05-03] MEDS: oxyCODONE/Acetamin 5/325 MG* TAB PO PRN (20:57)
--- NOTE | 2019-05-04 00:06 | OP ---
CC: Dr. Polk * DATE OF OPERATION: 05/03/19 - ROOM #450 DATE OF : 40 SURGEON: Edwin Self MD ANESTHESIA: Local anesthesia with conscious sedation. PRE-OP DIAGNOSES: 1. Sick sinus syndrome. 2. Atrial fibrillation. POST-OP DIAGNOSES: 1. Sick sinus syndrome. 2. Atrial fibrillation. OPERATIVE PROCEDURE: Dual-chamber pacemaker implantation. INDICATIONS: The patient is a 79-year-old female who has paroxysmal atrial fibrillation and sick sinus syndrome. A Holter monitor showed significant bradycardia as well as episodes of tachycardia. Permanent pacemaker was recommended. ESTIMATED BLOOD LOSS: Nil. COMPLICATIONS: None. DESCRIPTION OF PROCEDURE: The patient was brought to the procedure room in a fasting state. Informed consent had been obtained prior to the procedure. All labs had been reviewed. The patient was placed supine in the procedure table. Her left deltopectoral area was cleaned and draped in the usual fashion. 1% lidocaine was used for local anesthesia. Under ultrasound guidance, the axillary vein was entered via Seldinger technique and a guidewire was placed. The second guidewire was placed under the same technique. A 3.5-cm incision was made in the pectoral area. Blunt dissection was carried down to the pectoral fascia and a pocket was fashioned for the pacemaker. Over the first guidewire, a 7-Bermudian sheath introducer was placed, through which a right ventricular lead was advanced to the RV apex. The right ventricular lead is a Medtronic, model 5076, serial #[id number]. It had an R-wave sensitivity of 5, impedance 783 ohms, threshold 0.9 volts at 0.5 milliseconds. The ventricular lead was sutured to the pectoral fascia. Over the second guidewire, a 7-Bermudian sheath introducer was placed, through which a right atrial lead was advanced to the high right atrium. The right atrial lead is a Medtronic, model 5076, serial #[id number], it had a P-wave sensitivity of 4, impedance 706 ohms, threshold 0.3 volts at 0.5 milliseconds. The atrial lead was sutured to the pectoral fascia. The pocket was flushed. A generator was attached appropriately to the atrioventricular lead. The generator is a Medtronic, model W1DR01, serial #[id number]. The device was placed in the pocket. The surgical incision was closed in three layers. The patient was returned to the holding area in stable condition. [id number]/[facility] [place] #: [id number] RENÉE
[2019-05-04] MEDS: ceFAZolin 1 GM in Dextrose (*) 1 GM/50 ML BAG IVPB SCH ×2 (02:24→10:30)
[2019-05-04] MEDS: oxyCODONE/Acetamin 5/325 MG* TAB PO PRN ×2 (04:58→11:25)
[2019-05-04] MEDS ORDERED: Metoprolol Succinate XL TAB* 25 MG PO SCH (09:00)
[2019-05-04] MEDS ORDERED: Diltiazem CD CAP* 120 MG PO SCH (09:00)
[2019-05-04 09:08] LABS: BUN/Creatinine Ratio 17.7 (8-20); Calcium 9.6 mg/dL (8.6-10.3); EGFR African American 67.8 (>60); EGFR Non-African American 56.1 (>60); Potassium 4.4 mmol/L (3.5-5.0)
--- NOTE | 2019-05-04 10:54 | DS ---
CC: Dr. Zechariah Polk; Dr. Cyndei Hudson * DISCHARGE SUMMARY: DATE OF ADMISSION: 05/03/19 TENTATIVE DATE OF DISCHARGE: Pending no complications, 05/04/19 ATTENDING PHYSICIAN: Edwin Self MD * (DICTATED BY VERNON ARANGO NP) PRIMARY CAPTAIN AIRLINE PILOT: Dr. Zechariah Polk. PRIMARY PHYSICIAN: Dr. Cyndie Hudson. ADMITTING DIAGNOSES: 1. Sick sinus syndrome, here for elective dual-chamber pacemaker implantation. 2. History of paroxysmal atrial fibrillation, on Eliquis, metoprolol, Cardizem therapy. 3. History of hypertension, on metoprolol and Cardizem therapy. 4. Hyperkalemia, on 04/29/19 basic metabolic panel. DISCHARGE DIAGNOSES: 1. Sick sinus syndrome with symptomatic bradycardia. Patient is status post dual- chamber pacemaker implantation on 05/03/[address] Edwin Self. 2. History of paroxysmal atrial fibrillation, on Eliquis, Cardizem, and metoprolol therapy. 3. History of hypertension. 4. History of mitral regurgitation. PROCEDURES PERFORMED: The patient had dual-chamber pacemaker implantation on by Dr. Edwin Self. The right ventricular lead was Medtronic model # 5076, serial #[id number]. The right atrial lead is Medtronic, model 5076, serial #[id number]. The generator is Medtronic, model W1DR01, serial # [id number]. There was no complication. COURSE OF HOSPITAL STAY: This is a pleasant 79-year-old female patient who was evaluated by Dr. Edwin Self in our office through consultation due to complaints of fatigue and lightheadedness with episodes of bradycardia and tachycardia suggestive of symptomatic sick sinus syndrome. The patient presented to [facility] on 05/03/19 for elective dual-chamber pacemaker implantation. Prior to having procedure performed, Eliquis was held. The patient had basic blood work drawn on 04/29/19. At that time, INR was 1.25, white count 5.7, hemoglobin 16.3, hematocrit 49. Sodium 140, potassium 5.2, chloride 105, carbon dioxide 25, BUN 18, creatinine 1.06. Patient underwent the above-mentioned procedure. Postprocedure, she was transferred to [address] [place] [address] where she has been monitored on telemetry overnight. She had a chest x- ray postoperatively at 11:24 a.m. on 05/03/19, which demonstrated small left basilar infiltrate and pleural effusion. No events occurred last night. She has been A-paced with periods of paroxysmal AFib on telemetry. She offers no complaints. Denies chest pain, shortness of breath, palpitation, or dizziness. The patient had device interrogation this morning, which was normal per report. There was no ventricular arrhythmia or AFib. She is A-paced 92.1%, ventricular paced 66.4% at the time. Atrial pacing threshold 0.4 milliseconds. Right ventricular pacing threshold 0.4 milliseconds. Chest x-ray is currently pending at this time. Left anterior device site was inspected. Dressing was removed. There was scant blood noted on dressing. There was no evidence of hematoma. Edges are well approximated with av in situ. Incisional site is nontender to palpation. There is no evidence of oozing or signs or symptoms of infection at this time. BMP was updated due to hyperkalemia noted on . BMP is currently pending. The patient has been hypertensive this morning, although she has not received metoprolol or Cardizem therapy, which had been re- ordered. Pending chest x-ray and BMP, tentative discharge is later this morning to home. The patient is currently in stable condition. DISCHARGE MEDICATIONS: Include: 1. Diltiazem 120 mg p.o. daily. 2. Eliquis 5 mg p.o. daily, first dose is 05/04/19 at 6 p.m. 3. Crestor 5 mg a day. 4. Metoprolol 25 mg a day. 5. Gabapentin 300 mg p.o. q.h.s. p.r.n. 6. Keflex 250 mg p.o. t.i.d. for 3 days. Prescriptions sent into patient's pharmacy at [facility]. DRIVING RESTRICTIONS: No driving until she follows up on 05/11/[address] Self. LIFTING RESTRICTIONS: The patient is to wear left upper extremity arm immobilizer for 6 weeks. She is aware to not lift more than 10 pounds for 2 weeks. She is not to lift more than 15 pounds for 8 weeks. She is to not lift left arm above shoulder for 6 weeks. She is to not lift left arm above head for 8 weeks. She is to keep incision clean, dry, and intact for 2 weeks. WOUND CARE: The patient was instructed to change dressing daily until 05/07/19 and leave open to air. She is aware that she may shower starting 05/05/19, although she is not able to take a bath, swim, or utilize hot tub. She was instructed to contact our practice for any signs or symptoms of infection such as swelling, oozing, fever, chills, inflammation, or discharge that is from device site. BMP today revealed stable K+. No pneumothorax per radiology report. Pending no complications, she will be discharged home later today. She is to follow up with Dr. Edwin Self on 05/11/19 at 12:45 in the morning at our medical office building. She is to follow up with Dr. Zechariah Polk as planned on 05/20/19 at 10:45 [place]. [place]ON AR[place], [place] [id number]/[facility] [place] #: [id number] RENÉE
[2019-05-04 11:30] VITALS: BP 140/90
== END 2019-05-04 13:22 | disposition home or self-care (01) ==
LOC: CHICATH 09:15 → MEDTELE 11:22
PROVIDERS: ADMIT Specialist; ATTEND Specialist
DX: I49.5 Sick sinus syndrome (principal); I48.91 Unspecified atrial fibrillation; I34.0 Nonrheumatic mitral (valve) insufficiency; Z79.01 Long term (current) use of anticoagulants; I10 Essential (primary) hypertension; E87.5 Hyperkalemia; J90 Pleural effusion, not elsewhere classified; Z85.3 Personal history of malignant neoplasm of breast; R00.1 Bradycardia, unspecified
CPT/HCPCS: 33208; 36415; 71045; 71046; 80048; 93005; 96365; 96366; 99156; 99157; A9270-GY; C1785; C1892; C1898; G0378; J0690; J2250; J3010

== ENCOUNTER 2019-10-03 12:55 | Emergency (ER) | payer MEDICARE, BC ==
[2019-10-03 13:08] VITALS: BP 147/77
--- NOTE | 2019-10-03 13:17 | UC ---
Skin Complaint HPI - HPI Summary HPI Summary: 79 year old female presents for tick bite to her left anterior chest. States she discovered the tick this morning. attempted to remove but she thinks there may be part of the tick still embedded. She was last outdoors and is pretty sure that the tick was attached for less than 24 hours. States tick was not engorged. Denies fever, chills, fatigue, rash, flu-like illness, myalgias, joint pain or swelling. - History of Current Complaint Chief Complaint: UCSkin Time Seen by Provider: 10/03/19 13:11 Stated Complaint: TICK BITE Hx Obtained From: Patient Pain Intensity: 2 - Allergy/Home Medications Allergies/Adverse Reactions: Allergies Allergy/AdvReac Type Severity Reaction Status Date / Time No Known Allergies Allergy Verified 10/03/19 13:08 PMH/Surg Hx/FS Hx/Imm Hx Endocrine History: Dyslipidemia Cardiovascular History: Cardiac Disease, Hypertension, Pacemaker/ICD, Atrial Fibrillation, Other - Sick sinus syndrome Respiratory History: COPD, Other - CONCEPCION - Surgical History Surgical History: Yes Surgery Procedure, Year, and Place: REMOVAL OF PRECANCEROUS CERVICAL CELLS- [facility]. LUMPECTOMY-1996. LEFT HIP REPLACEMENT-2009. RIGHT HIP REPLACEMENT- 2010. 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 pacemaker implantation - Family History Known Family History: Positive: Diabetes - Social History Occupation: Retired Lives: With Family Alcohol Use: None Alcohol Amount: 1-2 per day Substance Use Type: None Smoking Status (MU): Former Smoker Type: Cigarettes Amount Used/How Often: <1 PPD X 40 YEARS Have You Smoked in the Last Year: No When Did the Patient Quit Smoking/Using Tobacco: 03/2001 Household Exposure Type: Cigarettes Review of Systems All Other Systems Reviewed And Are Negative: Yes Constitutional: Negative: Fever, Chills, Fatigue Skin: Positive: Other - See HPI. Negative: Rash Respiratory: Positive: Negative Cardiovascular: Positive: Negative Gastrointestinal: Positive: Negative Genitourinary: Positive: Negative Musculoskeletal: Negative: Arthralgia, Myalgia Neurological: Positive: Negative Is Patient Immunocompromised?: No Physical Exam - Summary Physical Exam Summary: GENERAL APPEARANCE: Well developed, well nourished, alert and cooperative, and appears to be in no acute distress. CARDIAC: Normal S1 and S2. No S3, S4 or murmurs. Rhythm is regular. There is no peripheral edema, cyanosis or pallor. Extremities are warm and well perfused. Capillary refill is less than 2 seconds. Peripheral pulses intact. LUNGS: Clear to auscultation without rales, rhonchi, wheezing or diminished breath sounds. ABDOMEN: Positive bowel sounds. Soft, nondistended, nontender. No guarding or rebound. No masses or hepatosplenomegally. MUSKULOSKELETAL: ROM intact to all extremities. No joint erythema or tenderness. Normal muscular development. Normal gait. SKIN: Skin normal color, texture and turgor. Small area of erythema approximately 1 cm in diameter with a central area of excoriation and small retained mouth part to the left anterior chest wall. Triage Information Reviewed: Yes Vital Signs: Initial Vital Signs Temp 97 F 10/03/19 13:02 Pulse 80 10/03/19 13:02 Resp 16 10/03/19 13:02 BP 147/77 10/03/19 13:02 Pulse Ox 97 10/03/19 13:02 Vital Signs Reviewed: Yes Course/Dx - Course Course Of Treatment: 79 year old female presents for tick bite to her left anterior chest. States she discovered the tick this morning. attempted to remove but she thinks there may be part of the tick still embedded. She was last outdoors and is pretty sure that the tick was attached for less than 24 hours. States tick was not engorged. Denies fever, chills, fatigue, rash, flu-like illness, myalgias, joint pain or swelling. Afebrile. Hypertensive otherwise vital signs stable. Patient had a small area of erythema approximately 1 cm in diameter with a central area of excoriation and small retained mouth part to the left anterior chest wall. I was able to remove most of the mouth part using splinter forceps. Discussed with the patient that based on her history there is a low risk for transmission of Lyme disease and am recommending watchful waiting at this time. She is to follow up with her primary care provider as needed. Signs and symptoms of Lyme disease, anticipatory guidance, and warning symptoms reviewed with patient. Verbalizes understanding and agrees with plan of care. - Differential Diagnoses - Skin Complaint Differential Diagnoses: Local Allergic Reaction, Tick Born Illness - Diagnoses Provider Diagnosis: Tick bite of chest wall Discharge ED - Sign-Out/Discharge Documenting (check all that apply): Patient Departure All imaging exams completed and their final reports reviewed: No Studies - Discharge Plan Condition: Stable Disposition: HOME Patient Education Materials: Tick Bite (ED) Referrals: Cyndie Hudson MD [Primary Care Provider] - If Needed Additional Instructions: Ticks transmit infection only after they have attached and then taken a blood meal from their new host. A tick that has not attached cannot not pass any infection. Since the deer tick that transmits Lyme disease typically feeds for more than 36 hours before transmitting the organisim that causes Lyme disease, the risk of acquiring Lyme disease from an tick bite is extremely small, even in an area where the disease is common. There is no benefit of blood testing for Lyme disease at the time of the tick bite because even people who become infected will not have a positive blood test until approximately two to six weeks after the tick bite. To try to avoid getting bitten by a tick, you can: * Wear shoes, long-sleeved shirts, and long pants when you go outside. Keep ticks away from your skin by tucking your pants into your socks. * Wear light colors so you can spot any ticks that get on your clothes. * Wear bug spray or cream that contains DEET. (Do not use DEET on babies younger than 2 months.) On your clothes and gear, you can use bug repellents that have a chemical called "permethrin." * Shower within 2 hours of being outdoors if you think you have been in an area where there are ticks. * Put dry clothes briefly (for about 4 minutes) in a dryer after being outdoors. * Check your clothes and body for ticks after being outdoors. Be sure to check your scalp, waist, armpits, groin, and backs of your knees. Check your children , too. After a tick bite, you will need to monitor for signs of Lyme disease over the nexter several weeks even if you have been given antibiotics to prevent the infection. Seek immediate medical attention if you develop a bullseye rash, fever, flu-like symptoms including headache, stiff neck, fatigue, muscle aches, joint pain or swelling. - Billing Disposition and Condition Condition: STABLE Disposition: Home - Attestation Statements Provider Attestation: Per institutional requirements, I have reviewed the chart, however, I was not consulted specifically or made aware of this patient by the midlevel provider. I did not personally evaluate, interact with , or disposition this patient.
== END 2019-10-03 13:30 | disposition home or self-care (01) ==
LOC: UCEAST 12:55
DX: S20.362A Insect bite (nonvenomous) of left front wall of thorax, initial encounter (principal); I10 Essential (primary) hypertension; J44.9 Chronic obstructive pulmonary disease, unspecified; Z87.891 Personal history of nicotine dependence; W57.XXXA Bitten or stung by nonvenomous insect and other nonvenomous arthropods, initial encounter; Y92.9 Unspecified place or not applicable
CPT/HCPCS: 99211; G0463

== ENCOUNTER 2021-10-03 03:35 | Observation (INO) ==
[2021-10-03 05:28] LABS: ABS Lymphocytes 0.6 10^3/ul (1.0-4.8); ABS Monocytes 0.7 10^3/ul (0-0.8); ABS Neutrophils 7.1 10^3/ul (1.5-7.7); Eosinophil % 0.5 %; Hematocrit 47 % (35-47); Hemoglobin 15.3 g/dL (12.0-16.0); Lymphocyte % 7.4 %; Mean Corpuscular HGB Conc 33 g/dL (31-36); Mean Corpuscular Hemoglobin 31 pg (27-31); Mean Corpuscular Volume 94 fL (80-97); Mean Platelet Volume 7.5 fL (7.4-10.4); Nucleated Red Blood Cells % 0.1; Platelet Count 215 10^3/uL (150-450); Red Blood Count 4.98 10^6 /uL (3.70-4.87); Red Cell Distribution Width 15 % (10-15); White Blood Count 8.5 10^3/uL (3.5-10.8)
[2021-10-03 05:48] LABS: Albumin 4.1 g/dL (3.2-5.2); Albumin/Globulin Ratio 1.6 (1-3); Calcium 9.5 mg/dL (8.6-10.3); Globulin 2.5 g/dL (2-4); Potassium 4.4 mmol/L (3.5-5.0); Total Bilirubin 0.9 mg/dL (0.2-1.0); Total Protein 6.6 g/dL (6.4-8.9)
[2021-10-03 05:50] LABS: Troponin I 0.01 ng/mL (<0.03)
[2021-10-03 09:03] LABS: Rapid COVID-19 Molecular Undetected (Undetected)
[2021-10-03] MEDS ORDERED: Regadenoson 0.4 MG/5 ML SYRINGE ONE (11:59)
[2021-10-03] MEDS ORDERED: Aminophylline 25 MG/ML VIAL ONE (11:59)
[2021-10-03 15:48] VITALS: BP 141/78
[2021-10-03] MEDS ORDERED: Iodixanol (CONTRAST) 320 MG/ML 100 ML SDV IV ONE (17:08)
== END 2021-10-03 18:35 | disposition home or self-care (01) ==
LOC: ED 03:35 → MEDTELE 03:35
PROVIDERS: ADMIT Hospitalist; ATTEND Hospitalist